=== PATIENT | female | born 1995 | race Caucasian/White ===

== ENCOUNTER 2017-11-12 15:56 | Emergency (ER) | payer OTHER ==
[2017-11-12] MEDS ORDERED: TYLENOL PO ONE (17:18)
[2017-11-12] MEDS ORDERED: GUAIFENESIN DM SYRUP PO ONE (17:19)
[2017-11-12 17:39] VITALS: BP 108/55
--- NOTE | 2017-11-12 17:50 | Emergency Department Report ---
- General Chief Complaint: Upper Respiratory Infection Stated Complaint: COUGH, FLU Time Seen by Provider: 11/12/17 17:11 Source: patient Mode of arrival: Ambulatory Limitations: No Limitations - History of Present Illness Initial Comments: 22-year-old female past medical history none presents with complaint of one day of sore throat slightly productive cough and malaise. Patient denies dysuria or hematuria increased urinary frequency foul-smelling urine abdominal pain chest pain palpitations. Does state she has some nausea and has been coughing persistently. Patient states that symptoms began yesterday afternoon. Patient states she has multiple coworkers were diagnosed with the flu earlier this week. States she took Mucinex at home for symptoms. Patient states she is allergic to NSAIDs especially aspirin which gives her angioedema. Patient is awake alert and oriented 3 does not appear to be in any acute distress no visible dyspnea no wheezing or stridor no respiratory retractions. Patient denies being a smoker. LMP 1 week ago MD Complaint: cough Onset/Timin -: days(s) Severity: mild Consistency: intermittent Context: sick contacts Associated Symptoms: myalgias, sore throat, cough Treatments Prior to Arrival: other (mucinex) - Related Data Previous Rx's Medication Instructions Recorded Last Taken Type Acetaminophen [Acetaminophen TAB] 500 mg PO Q6HR PRN #30 tablet 11/12/17 Unknown Rx Benzonatate [Tessalon Perles] 100 mg PO Q8HR PRN #30 capsule 11/12/17 Unknown Rx Oseltamivir [Tamiflu] 75 mg PO BID #10 cap 11/12/17 Unknown Rx Allergies Allergy/AdvReac Type Severity Reaction Status Date / Time aspirin Allergy Shortness Verified 11/12/17 16:40 of Breath ED Review of Systems ROS: Stated complaint: COUGH, FLU Other details as noted in HPI Constitutional: denies: chills, fever Eyes: denies: eye pain, eye discharge, vision change ENT: denies: ear pain, throat pain Respiratory: cough. denies: shortness of breath, wheezing Cardiovascular: denies: chest pain, palpitations Endocrine: no symptoms reported Gastrointestinal: denies: abdominal pain, nausea, diarrhea Genitourinary: denies: urgency, dysuria, discharge Musculoskeletal: denies: back pain, joint swelling, arthralgia Skin: denies: rash, lesions Neurological: denies: headache, weakness, paresthesias Psychiatric: denies: anxiety, depression Hematological/Lymphatic: denies: easy bleeding, easy bruising ED Past Medical Hx - Past Medical History Previous Medical History?: No - Surgical History Past Surgical History?: No - Social History Smoking Status: Never Smoker Substance Use Type: None - Medications Home Medications: Home Medications Medication Instructions Recorded Confirmed Last Taken Type Acetaminophen [Acetaminophen TAB] 500 mg PO Q6HR PRN #30 tablet 11/12/17 Unknown Rx Benzonatate [Tessalon Perles] 100 mg PO Q8HR PRN #30 capsule 11/12/17 Unknown Rx Oseltamivir [Tamiflu] 75 mg PO BID #10 cap 11/12/17 Unknown Rx ED Physical Exam - General Limitations: No Limitations General appearance: alert, in no apparent distress - Head Head exam: Present: atraumatic, normocephalic - Eye Eye exam: Present: normal appearance, PERRL, EOMI - ENT ENT exam: Present: mucous membranes moist - Neck Neck exam: Present: normal inspection - Respiratory Respiratory exam: Present: normal lung sounds bilaterally (lungs clear to auscultation bilaterally). Absent: respiratory distress - Cardiovascular Cardiovascular Exam: Present: regular rate, normal rhythm. Absent: systolic murmur, diastolic murmur, rubs, gallop - GI/Abdominal GI/Abdominal exam: Present: soft (abdomen soft nontender nondistended 4 quadrants), normal bowel sounds - Extremities Exam Extremities exam: Present: normal inspection - Back Exam Back exam: Present: normal inspection - Neurological Exam Neurological exam: Present: alert, oriented X3 - Psychiatric Psychiatric exam: Present: normal affect, normal mood - Skin Skin exam: Present: warm, dry, intact, normal color. Absent: rash ED Course Vital Signs 11/12/17 11/12/17 16:40 17:32 Temperature 98.7 F 99.0 F Pulse Rate 96 H 96 H Respiratory 18 18 Rate Blood Pressure 111/64 Blood Pressure 108/55 [Right] O2 Sat by Pulse 97 98 Oximetry ED Medical Decision Making - Medical Decision Making A/P: Flulike illness 1-based on patient's constellation of symptoms including subjective fever and persistent cough with slightly sore throat and viral type symptoms and given current existing national flu epidemic it is likely patient has the flu. Although flu swab is negative as per CDC guidelines based on clinical symptoms patient may still have the flu. Patient has also had contact with several people have been sick with similar symptoms this week. Symptoms started yesterday and patient is an window for treatment with Tamiflu. I discussed with the patient whether or not she wants to be treated with Tamiflu and patient elects to do so. I advised her that it may have side effects. Patient' s vital signs are normal and patient is tolerating by mouth fluid without difficulty 2-Mucinex for cough, Tylenol when necessary for fever, Tessalon Perles for cough 3-follow-up with primary care doctor Critical care attestation.: If time is entered above; I have spent that time in minutes in the direct care of this critically ill patient, excluding procedure time. ED Disposition Clinical Impression: Flu-like symptoms Disposition: - TO HOME OR SELFCARE Is pt being admited?: No Does the pt Need Aspirin: No Condition: Stable Instructions: Influenza (ED), Viral Syndrome (ED) Prescriptions: Acetaminophen [Acetaminophen TAB] 500 mg PO Q6HR PRN #30 tablet PRN Reason: Fever Benzonatate [Tessalon Perles] 100 mg PO Q8HR PRN #30 capsule PRN Reason: Cough Oseltamivir [Tamiflu] 75 mg PO BID #10 cap Referrals: PRIMARY CARE, [Primary Care Provider] - 3-5 Days [facility] [Outside] - 3-5 Days [facility] [Outside] - 3-5 Days SCHUYLER SOARES MD [Staff Physician] - 3-5 Days Forms: Accompanied Note, Work/School Release Form(ED) Time of Disposition: 17:50
== END 2017-11-12 18:02 | disposition home or self-care (01) ==
LOC: ED 15:56
DX: J02.9 Acute pharyngitis, unspecified (principal); R05 Cough; Z88.6 Allergy status to analgesic agent
CPT/HCPCS: 87400; 99282

== ENCOUNTER 2018-01-01 02:42 | Emergency (ER) | payer OTHER ==
[2018-01-01 03:26] LABS: Basophils % (Auto) 0.2 % (0.0-1.8); Hematocrit 39.8 % (30.3-42.9); Hemoglobin 13.6 gm/dl (10.1-14.3); Lymphocytes # (Auto) 1.3 K/mm3 (1.2-5.4); Lymphocytes % (Auto) 13.4 % (13.4-35.0); Mean Corpuscular HGB Conc 34 % (30-34); Mean Corpuscular Hemoglobin 31 pg (28-32); Mean Corpuscular Volume 92 fl (79-97); Monocytes # (Auto) 0.4 K/mm3 (0.0-0.8); Monocytes % (Auto) 4.4 % (0.0-7.3); Platelet Count 350 K/mm3 (140-440); Red Blood Count 4.34 M/mm3 (3.65-5.03); Red Cell Distribution Width 13.7 % (13.2-15.2)
[2018-01-01 03:41] LABS: Alanine Aminotransferase 12 units/L (7-56); Albumin 4.4 g/dL (3.9-5); BUN/Creatinine Ratio 32; Blood Urea Nitrogen 19 mg/dL (7-17); Hemolysis Index 5
[2018-01-01 04:52] LABS: Bilirubin,Urine NEG (Negative); Blood,Urine NEG (Negative); Color,Urine Yellow (Yellow); Mucus,Urine 3+ /HPF; Urobilinogen,Urine < 2.0 mg/dL (<2.0)
[2018-01-01] MEDS ORDERED: NORCO 5/325 PO ONE (06:58)
[2018-01-01] MEDS ORDERED: ZOFRAN ODT PO ONE (06:58)
[2018-01-01] MEDS ORDERED: TYLENOL PO ONE (07:03)
[2018-01-01 07:14] VITALS: BP 125/80
--- NOTE | 2018-01-01 07:43 | Emergency Department Report ---
HPI - General Chief Complaint: Abdominal Pain Time Seen by Provider: 01/01/18 06:44 - HPI HPI: The patient is a 22-year-old female presents for evaluation of abdominal pain. The patient reports 5 days of waxing and waning cramping abdominal pain, 6/10 in severity the past one day, exacerbated with retching, and associated with nausea and multiple episodes of nonbilious, nonbloody emesis and multiple episodes of loose watery stools for blood. The patient denies fever, chills, night sweats, hematemesis, blood in the stool, dark tarry stool, dysuria, hematuria, flank pain, genital discharge, inability to pass flatus. ED Past Medical Hx - Past Medical History Previous Medical History?: No - Surgical History Past Surgical History?: No - Social History Smoking Status: Never Smoker Substance Use Type: None - Medications Home Medications: Home Medications Medication Instructions Recorded Confirmed Last Taken Type Acetaminophen [Acetaminophen TAB] 500 mg PO Q6HR PRN #30 tablet 11/12/17 Unknown Rx Benzonatate [Tessalon Perles] 100 mg PO Q8HR PRN #30 capsule 11/12/17 Unknown Rx Oseltamivir [Tamiflu] 75 mg PO BID #10 cap 11/12/17 Unknown Rx Ondansetron [Zofran TAB] 4 mg PO Q8HR PRN #20 tablet 01/01/18 Unknown Rx traMADol [Ultram 50 MG tab] 50 mg PO Q6HR PRN #15 tablet 01/01/18 Unknown Rx ED Review of Systems ROS: Stated complaint: POSSIBLE FOOD POISING/ STOMACH ISSUES Other details as noted in HPI Constitutional: denies: fever ENT: denies: throat or neck pain Respiratory: denies: cough, shortness of breath Cardiovascular: denies: chest pain Endocrine: denies unexplained weight loss or gain Gastrointestinal: reports abdominal pain, nausea Genitourinary: denies: dysuria Musculoskeletal: denies: leg swelling Skin: denies: rash Neurological: denies: headache Hematological/Lymphatic: denies: easy bleeding or easy bruising Psych: denies sadness or hopelessness Physical Exam - Physical Exam Vital Signs: Vital Signs 01/01/18 01/01/18 01/01/18 02:49 06:45 06:46 Temperature 97.8 F Pulse Rate 88 80 74 Respiratory 18 15 18 Rate Blood Pressure 127/64 126/72 Blood Pressure 124/87 [Right] O2 Sat by Pulse 97 99 98 Oximetry 01/01/18 07:00 Temperature Pulse Rate 70 Respiratory 15 Rate Blood Pressure 125/80 Blood Pressure [Right] O2 Sat by Pulse 98 Oximetry Physical Exam: General: well-nourished, well-developed, no acute distress Head: Normocephalic, atraumatic Eyes: normal sclera ENT: Mucous membranes are pale and dry Neck: trachea midline, neck supple, No neck stiffness, no cervical adenopathy Respiratory: Breath sounds equal bilaterally, no wheezing, rales, or rhonchi Cardio: S1 and S2 present, no murmurs, rubs, gallops, capillary refill is delayed Abdomen: Normoactive bowel sounds, soft abdomen, periumbilical tenderness to palpation present, no rigidity, no guarding or rebound tenderness Musc: No pitting edema Skin: No rash Neuro: no facial drooping, normal speech Psych: Normal affect ED Course Vital Signs 01/01/18 01/01/18 01/01/18 02:49 06:45 06:46 Temperature 97.8 F Pulse Rate 88 80 74 Respiratory 18 15 18 Rate Blood Pressure 127/64 126/72 Blood Pressure 124/87 [Right] O2 Sat by Pulse 97 99 98 Oximetry 01/01/18 07:00 Temperature Pulse Rate 70 Respiratory 15 Rate Blood Pressure 125/80 Blood Pressure [Right] O2 Sat by Pulse 98 Oximetry ED Medical Decision Making - Lab Data Result diagrams: 01/01/18 03:13 01/01/18 03:13 - Medical Decision Making The patient was seen and examined by myself. The patient is placed on a bus monitor and continuous pulse ox. On initial evaluation, the patient was found to be in no distress. Evaluation orders are placed. The patient given a tablet of Zofran for n/v and tramadol for her pain. Lab results were non- concerning including WBC, hemoglobin, hematocrit, renal function, LFTs, lipase, neg preg, and urinalysis. The patient was reevaluated and reported that their symptoms were markedly improved. The patient is stable for discharge with outpatient follow-up. The patient is given follow-up and return instructions. The patient expressed understanding and agreed with the plan. The patient is discharged in stable condition. Critical care attestation.: If time is entered above; I have spent that time in minutes in the direct care of this critically ill patient, excluding procedure time. ED Disposition Clinical Impression: Abdominal pain, acute, periumbilical, Nausea and vomiting in adult Diarrhea Qualifiers: Diarrhea type: unspecified type Qualified Code(s): R19.7 - Diarrhea, unspecified Disposition: - TO HOME OR SELFCARE Is pt being admited?: No Does the pt Need Aspirin: No Condition: Stable Instructions: Gastroenteritis (ED), Food Poisoning (ED), Abdominal Pain (ED) Prescriptions: Ondansetron [Zofran TAB] 4 mg PO Q8HR PRN #20 tablet PRN Reason: Nausea traMADol [Ultram 50 MG tab] 50 mg PO Q6HR PRN #15 tablet PRN Reason: Pain Referrals: PRIMARY CARE, [Primary Care Provider] - 3-5 Days Time of Disposition: 07:19
== END 2018-01-01 08:13 | disposition home or self-care (01) ==
LOC: ED 02:42
DX: R10.33 Periumbilical pain (principal); R11.2 Nausea with vomiting, unspecified; R19.7 Diarrhea, unspecified; Z88.6 Allergy status to analgesic agent
CPT/HCPCS: 36415; 80053; 81001; 83690; 84703; 85025; 99284; Q0162